=== PATIENT | female | born 1975 | race American Indian/Alaskan Native ===

== ENCOUNTER 2018-07-28 21:14 | Emergency (ER) | payer MEDICAID ==
[2018-07-28 21:28] VITALS: BMI 27.8
[2018-07-28 21:38] VITALS: TEMP 97.9
--- NOTE | 2018-07-28 21:51 | ED PDOC ---
Arrival/HPI - General Chief Complaint: Syncope Time Seen by Provider: 07/28/18 21:20 Historian: Patient - History of Present Illness Narrative History of Present Illness (Text): 07/28/18 21:51 42 year old female, with no significant past medical history, presents to the emergency department for evaluation, status post syncopal episode, 1 hour prior. Patient states while at work she began to feel anxious, short of breath, and felt like she was having a panic attack. Patient states she's had a similar incident 4 months prior, which resolved itself in a few minutes. Patient states today she was having these symptoms intermittently, and they began to get worse. 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 Patient states her son then witnessed her pass out, and called EMS. Patient's son informs she had no tonic-clonic movements. Patient regained consciousness before EMS arrived. Patient also informs of some numbness in her right arm for the past 4 months. Patient states she had injured it slightly, and thinks her symptoms started shortly after that trauma. Patient denies any chest pain, fevers, recent procedures, vaginal bleeding or heavy menstruation, leg swelling, recent travel, leg swelling, vomiting, diarrhea, or any other complaints. 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 Past Medical History - Provider Review Nursing Documentation Reviewed: Yes - Cardiac Hx Cardiac Disorders: No - Pulmonary Hx Respiratory Disorders: Yes Hx Asthma: Yes - Psychiatric Hx Psychophysiologic Disorder: No Hx Substance Use: No - Anesthesia Hx Anesthesia: No Hx Anesthesia Reactions: No Hx Malignant Hyperthermia: No - Suicidal Assessment Feels Threatened In Home Enviroment: No Family/Social History - Physician Review Nursing Documentation Reviewed: Yes Family/Social History: No Known Family HX Smoking Status: Never Smoked Hx Alcohol Use: No Hx Substance Use: No Allergies/Home Meds Allergies/Adverse Reactions: Allergies No Known Allergies Allergy (Verified 06/26/16 09:00) Home Medications: Home Meds Medication Instructions Recorded Confirmed No Known Home Med 07/28/18 07/28/18 Review of Systems - Physician Review All systems were reviewed & negative as marked: Yes - Review of Systems Constitutional: absent: Fevers Cardiovascular: absent: Chest Pain Physical Exam - Physical Exam Narrative Physical Exam (Text): 07/28/18 21:49 Constitutional: No acute distress. Head: Normocephalic. Atraumatic. Eyes: PERRL. ENT: Moist mucous membranes. Neck: Supple. Cardiovascular: Tachycardic rate. Chest: No tenderness. Respiratory: Clear to auscultation bilaterally. GI: Soft. Nontender. Nondistended. Back: No CVA tenderness. Musculoskeletal: No tenderness or swelling of extremities. Skin: No rash. Neurologic: Alert, no focal deficit. Vital Signs Reviewed: Yes Vital Signs Temp Pulse Resp BP Pulse Ox 07/28/18 21:35 97.9 F 103 H 18 122/82 100 Temperature: Afebrile Blood Pressure: Normal Pulse: Tachycardic Respiratory Rate: Normal Appearance: Positive for: Well-Appearing, Non-Toxic, Comfortable Pain Distress: None Mental Status: Positive for: Alert and Oriented X 3 Finger Stick Blood Glucose: 191 Medical Decision Making ED Course and Treatment: 07/28/18 21:50 Impression: 42 year old female presents for evaluation, status post syncopal episode. Plan: -- EKG -- Labs -- Chest X-ray -- Urinalysis -- Reassess and disposition Prior Visits: Notes and results from previous visits were reviewed. Progress Notes: 07/29/18 00:49 Chest X-ray reviewed by me, shows: No acute disease EKG NSR 103 bpm, no ST/T wave changes. Patient informed of lab results, offered observation stay due to shortness of breath but patient has decided to leave AMA. Copy of labs provided, patient states she will follow up with her PMD. - Scribe Statement The provider has reviewed the documentation as recorded by the Allie Jones Provider Scribe Attestation: All medical record entries made by the Allie were at my direction and personally dictated by me. I have reviewed the chart and agree that the record accurately reflects my personal performance of the history, physical exam, medical decision making, and the department course for this patient. I have also personally directed, reviewed, and agree with the discharge instructions and disposition. Disposition/Present on Arrival - Present on Arrival Any Indicators Present on Arrival: No History of DVT/PE: No History of Uncontrolled Diabetes: No Urinary Catheter: No History of Decub. Ulcer: No History Surgical Site Infection Following: None - Disposition Have Diagnosis and Disposition been Completed?: Yes Diagnosis: Syncope Disposition: AGAINST MEDICAL ADVICE Disposition Time: 01:18 Patient Plan: Discharge Patient Problems: Current Active Problems Problem Status Onset Syncope Acute Condition: STABLE Discharge Instructions (ExitCare): Syncope (ED) Forms: [facility] (Croatian) Against Medical Advice - AMA Patient Left Against Medical Advice: The patient declines admission to the hospital and wishes to leave the Emergency Department. This action is against my medical advice. This decision was made with informed refusal. The patient was told that admission to the hospital is necessary. Explanation of the reasons why were discussed. The risks of leaving were explained to the patient and include, but are not limited to, worsening of known or currently unknown conditions, permanent disability and from undiagnosed or untreated conditions. The patient has the capacity to make this informed decision and understands my explanation of the current medical problem and risks of leaving. The patient voluntarily accepts these risks and signed an AMA form documenting our conversation. The patient was given the opportunity to ask questions and reconsider. The patient was encouraged to return to the Emergency Department at any time for further care.
[2018-07-28 22:25] LABS: BASO # 0.01 K/mm3 (0.0-2.0); BASO % 0.1 % (0.0-3.0); EOS # 0.1 (0.0-0.7); GRAN # 7.46 (1.4-6.5); GRAN % 77.7 % (50.0-68.0); HEMOGLOBIN 12.7 g/dL (12.0-16.0); LYMPH # 1.8 (1.2-3.4); LYMPH % 18.8 % (22.0-35.0); MEAN CELL VOLUME 81.6 fl (80.0-105.0); MEAN CORPUSCULAR HEMOGLOBIN 26.6 pg (25.0-35.0); MEAN CORPUSCULAR HGB CONC 32.6 g/dl (31.0-37.0); MEAN PLATELET VOLUME 10.4 fl (7.0-11.0); MONO # 0.2 (0.1-0.6); MONO % 2.4 % (1.0-6.0); RBC 4.77 10^6/uL (3.5-6.1); RED CELL DISTRIBUTION WIDTH 16.5 % (11.5-14.5); WHITE BLOOD COUNT 9.6 10^3/uL (4.5-11.0)
[2018-07-28 23:11] LABS: ALB/GLOB RATIO 1.2 (1.1-1.8); ALBUMIN 4.2 g/dL (3.0-4.8); ALT/SGPT 21 U/L (7-56); AST/SGOT 24 U/L (14-36); BLOOD UREA NITROGEN 11 mg/dL (7-21); CALCIUM 8.9 mg/dL (8.4-10.5); GFR NON-AFRICAN AMERICAN > 60
[2018-07-28 23:23] LABS: B-TYPE NATRIURETIC PEPTIDE 57.2 pg/mL (0-450); TROPONIN I 0.02 ng/mL
[2018-07-29 01:02] LABS: URINE BILIRUBIN NEGATIVE (NEGATIVE); URINE BLOOD NEGATIVE (NEGATIVE); URINE GLUCOSE (UA) >=1000 mg/dL (NEGATIVE); URINE LEUKOCYTE ESTERASE NEGATIVE Leu/uL (NEGATIVE); URINE PROTEIN NEGATIVE mg/dL (<30 mg/dL); URINE UROBILINOGEN 0.2 E.U./dL (<1 E.U./dL)
[2018-07-29 01:03] LABS: URINE APPEARANCE CLEAR (CLEAR); URINE COLOR YELLOW (YELLOW)
[2018-07-29 01:07] LABS: HCG,QUALITATIVE URINE NEGATIVE (NEGATIVE)
[2018-07-29 01:42] VITALS: BP 131/71; PULSE 89; RESP 18; O2SAT 99
--- NOTE | 2018-07-29 09:08 | RAD ---
Date of service: 07/28/2018 HISTORY: syncope COMPARISON: No prior. TECHNIQUE: Chest PA and lateral FINDINGS: LUNGS: No active pulmonary disease. PLEURA: No significant pleural effusion identified. No pneumothorax apparent. CARDIOVASCULAR: No aortic atherosclerotic calcification present. Normal cardiac size. No pulmonary vascular congestion. OSSEOUS STRUCTURES: No significant abnormalities. VISUALIZED UPPER ABDOMEN: Normal. OTHER FINDINGS: None. IMPRESSION: No active disease.
--- NOTE | 2018-07-29 19:19 | CARD ---
APPROVED REPORT Date of service: 07/28/2018 EKG Measurement Heart [id number] <Conclusion> Sinus tachycardia Otherwise normal ECG
== END 2018-07-29 01:41 | disposition left against medical advice (07) ==
LOC: ED 21:14
DX: R55 Syncope and collapse (principal)